=== PATIENT | female | born 1955 | race Caucasian/White ===

== ENCOUNTER 2024-04-20 01:02 | Day surgery (SDC) | payer MEDICARE, SELFPAY ==
[2024-04-12 15:07] VITALS: BMI 26.5
--- NOTE | 2024-04-12 15:42 | PC.NURSE ---
Report to the Outpatient Waiting Room, entrance under the green pavilion located off [facility], at time _8:30AM__ on date _04/20/24__. Planned Procedure Time: ___10:30AM .? Time changes happen often and if your time is changed the preop area will call you the afternoon before. - You and your visitor will be asked to self-screen and do not enter if you have any COVID symptoms. Please call surgeon if you need to reschedule. - A mask is optional within the hospital at this time. Patients may have clear liquids (water, carbonated beverages, clear teas, apple juice) until 3 hours prior to surgery with a maximum of 20 ounces. - No food from midnight until time of surgery and no smoking - Infants may have breast milk until 4 hours before surgery, formula 6 hours prior to surgery. - Children will be allowed to drink immediately following surgery.? If applicable, please bring a bottle or sippy cup to assist with drinking. Juice, water, soda, and popsicles are readily available.? For infants on formula, please bring formula the day of surgery.? Pacifiers are allowed. Take only the following medications with a SIP of water on the morning of surgery: CLONAZEPAM NEEDED DO NOT STOP ANY OF YOUR OTHER PRESCRIPTION MEDICATIONS PRIOR TO SURGERY EXCEPT THE FOLLOWING Medications to discontinue per physician NONE Date to take last dose Please no make-up, nail palauan, hairspray, perfume, deodorant, or body powder the day of surgery.? No jewelry (including any body piercings) or valuables the day of surgery, leave them at home.? Please take a shower or bath the night before, or the morning of, surgery with an antibacterial soap.? Wear comfortable, loose fitting clothing.? Children are encouraged to wear pajamas. - Jewelry must be removed prior to entering the operating room.? Rings and piercings that are not removed may be cut off. - The hospital will not accept responsibility for valuables.? - Please leave all valuables, including medications, at home the day of surgery. If you are going home after surgery, a licensed cdl a driver must drive you home.? - NO public transportation without another adult if you receive anesthesia. - We recommend that an adult stay with you for 24 hours following discharge. - We also recommend that you do not drive, make important decision, drink alcoholic beverages, or take any drugs that were not prescribed by your health care provider for at least 24 hours after your discharge time. For Pediatric surgeries, we recommend two adults accompany the child home. Follow any additional instructions given to you from your surgeon. Telephone instructions given to ___PATIENT and asked if any additional questions and then verbalized understanding. Patient advised to call surgeon office or pre surgery nurse liaison [phone] if any additional questions.
--- NOTE | 2024-04-19 13:58 | P.PNAN_ITS ---
Anes - Initial Pre Proc Eval Procedure: Operation Date: 04/20/24 10:30 Proposed Procedures p Partial Plantar Fasciectomy Right Foot - Suhail Gallardo Jr., DPM Date/Time: 04/19/24 13:58 Surgeon: Suhail Gallardo Jr., DPM Pre Op Diagnosis: Plantar Fasciitis Rt Foot Patient Data Age: 68 Gender: F Height: 1.6 m Weight: 68 kg Allergies Allergy/AdvReac Type Severity Reaction Status Date / Time No Known Allergies Allergy Mild Verified 04/20/24 09:20 Home Medications Medication Instructions Recorded Confirmed Type spironolactone 25 mg tablet See Rx Instructions .Route 11/04/21 04/20/24 Rx .COMPLEX #180 tabs tretinoin 0.025 % topical cream 1 applic topical ONCE #45 grams 11/04/21 04/20/24 Rx (Retin-A) clonazepam 1 mg tablet 1 mg PO DAILY PRN anxiety #30 tabs 03/22/22 04/20/24 Rx amlodipine 2.5 mg tablet See Rx Instructions .Route 05/07/22 04/20/24 Rx .COMPLEX #90 ea clobetasol 0.05 % topical cream 1 applic topical DAILY 04/12/24 04/20/24 History ibuprofen 200 mg tablet 600 mg PO Q6H PRN Pain 04/12/24 04/20/24 History Patient hx anesthesia problems: none Family hx anesthesia problems: none Results Review: All pre-operative results and documents have been reviewed as part of the pre- operative evaluation. [facility] Past Medical History Medical History (Updated 04/19/24 @ 13:59 by Bret Gonzales DO) Anxiety disorder, unspecified History of COVID-19 Hx of hepatitis C Hypertension Screening for colon cancer Seborrheic keratoses Sexual dysfunction in females Stomach cancer Tobacco abuse Family History Family History Mother Hypertension Sibling Patient's sister is in good health Family history of malignant neoplasm of breast in first degree relative Father Carcinoma of colon, Onset Age: 64 Patient's father is Other Family history of arthritis Social History Social History Smoking packs per day: 0.75 Smoking cigarettes per day: 15.0 Years smoked: 50 Smoking pack-years: 37.50 Smoking status: Current every day smoker Tobacco type: cigarettes Second hand tobacco smoke exposure: No Alcohol intake: current Alcohol use details: occasional Substance use: never Substance use type: does not use Living arrangements: with family Additional living arrangements comments: S.O. Spiritual care concerns: No Anes - Eval Final PreProcedure Day of Procedure 04/19/24 13:58 Patient weight: overweight Heart: regular rate and rhythm Lungs: clear to auscultation Airway: Mallampati scale class II Neurological: alert and oriented Last oral intake: >/= 8 hours ASA classification: III Emergent: no Anesthetic plan: proceed Anesthesia type and monitoring: general GIVS and standard monitoring Results Review: All pre-operative results and documents have been reviewed as part of the pre- operative evaluation. Informed Consent: The patient's anesthetic plan and its attendant risks and benefits were discussed with the patient/family/POA. Questions were solicited and answers provided to the satisfaction of the patient/family/POA.
--- NOTE | 2024-04-20 07:19 | WPDHPUPDATE1 ---
History and Physical Update Update Date/Time: 04/20/24 07:19 History and Physical has been reviewed, including an updated exam of the patient. There are NO changes in the patient's condition. Risks, benefits, and alternatives have been discussed and questions answered. Patient agrees to proceed with procedure.
[2024-04-20] MEDS: LACTATED RINGERS 1,000 ML 30 ML IV CONT (09:00)
[2024-04-20 09:21] VITALS: BP 132/75; PULSE 73; RESP 16; TEMP 36.9; O2SAT 99
[2024-04-20] MEDS: ceFAZolin 2 GM/D5W 50 ML 2 GM/50 ML BAG IVPB (10:45)
[2024-04-20] MEDS: LIDOCAINE HCL 2% LOCAL INJ 20 ML VIAL 10 ML INFILTRATE (11:02)
[2024-04-20] MEDS: BUPivacaine HCL 0.5% 10 ML AMP INFILTRATE (11:03)
[2024-04-20 11:23] VITALS: BP 107/62; PULSE 67; RESP 16; O2SAT 98
--- NOTE | 2024-04-20 11:28 | P.OP_ITS ---
Procedure Note - Detailed Date of Procedure 04/20/24 Pre-op Diagnosis Plantar fasciitis right foot Post-op Diagnosis Same Procedure Performed Partial plantar fasciectomy right foot Surgeon Suhail Gallardo Jr., DPM Anesthesia MAC and Local Indications Chronic inferior right heel pain Findings Narrow thickened plantar fascia Description of Procedure Under mild sedation, the patient was brought in to the operating room, placed on the operating table in the supine position. A pneumatic ankle tourniquet was placed about the patient's ankle. Following general anesthesia, local anesthesia was obtained about the affected lower extremity utilizing 20 mL of a one to mix of 2% Lidocaine plain and 0.5% Marcaine plain to the tibial nerve. The foot was then scrubbed, prepped, and draped in the usual aseptic manner. An Esmarch bandage was then used to exsanguinate the patient's foot and the pneumatic ankle tourniquet was then inflated. Next, an incision was made starting distal to the medial tubercle of the c alcaneus extending distally 3cm. All bleeders were cauterized as necessary. Next the dissection was continued down to the plantar fascia it was exposed medially and laterally with [employer] retractors. The plantar fascia was noted to be abnormally narrow however thickened. Two thirds of the medial plantar fascia was transected and a 4mm portion was also cut and discarded at which point the deep intrinsic muscle was visualized. The wound site was flushed with sterile saline. The deep subcutaneous tissue was reapproximated with 3.0 Vicryl and the skin was reapproximated with 2.0 Prolene and 3.0 Prolene in Vertical mattress and Simple interrupted suture technique. Upon completion of the procedure, the plantar incision was dressed with adaptic, 4x4 gauze, kerlix and coban. The pneumatic ankle tourniquet was then deflated and a prompt hyperemic response was noted to all digits of the affected foot. A CAM Walker boot was then applied. The patient did very well with the procedure and the anesthesia. The patient was transferred to the recovery room with vital signs stable and vascular status intact to all toes of the affected foot. Following a period of postoperative monitoring, the patient will be discharged home on the following written and oral postoperative instructions: 1. The patient should keep the dressing clean, dry, and intact. Use a cast protector bag with showers. 2. The patient will be strictly protected weight bearing with CAM walker boot. 3. Patient should ice and elevate the affected foot when at rest. 4. The patient is to contact Dr. Gallardo for all postop care and if any problems arise. 5. Prescriptions were written for Percocet 5/325 dispensed 40 to be taken 1 p.o. q.4-6 hours as needed for severe pain. Estimated Blood Loss 1 Drains No Packing No Pathology None sent Complications No immediate complications Condition Stable Disposition Same day
[2024-04-20] MEDS: oxyCODONE HCL (*CRX) 5 MG TAB IR PO (11:43)
[2024-04-20 11:50] VITALS: BP 142/70; PULSE 68; RESP 20
[2024-04-20 12:10] VITALS: BP 140/70; PULSE 70; RESP 20
--- NOTE | 2024-04-20 12:31 | SUR.PHASEII ---
1850 - dr. guy ordered cam walker boot size medium for patient. boot placed on pt.
== END 2024-04-20 12:15 | disposition home or self-care (01) ==
PROVIDERS: PCP Family Medicine; Visit Provider Podiatrist Foot & Ankle Surgery
PROC: (CPT 28119; principal; 2024-04-20 10:30)
DX: M72.2 Plantar fascial fibromatosis (principal); F41.9 Anxiety disorder, unspecified; I10 Essential (primary) hypertension; Z86.19 Personal history of other infectious and parasitic diseases; F17.210 Nicotine dependence, cigarettes, uncomplicated
CPT/HCPCS: 28060; A9270; J0690; J2704; J3010; J7120; L2116